=== PATIENT | male | born 1965 | race Caucasian/White ===

== ENCOUNTER → 2018-08-25 15:08 | Outpatient (CLI) | payer OTHER, SELFPAY ==
--- NOTE | 2018-08-24 14:15 | ETH_PTH ---
PATIENT: BENTON TUCKER LOC: [facility] U#:[id number] AGE/SX: 59/M ROOM: RE08/25/[address]: Dr. Forest Johnston MD : [id number] BED: DIS: SPEC #: [id number] RECD: 08/25/18 15:00 STATUS: MATTY CEDRICK #: [id number] FLORINDA: 08/24/18 14:[address]: Forest Johnston DEPT: SURGICAL PATHOLOGY RECD BY: Mike Gallego ENTERED: 08/26/18 14:31 SP TYPE: ETH TISS OTHR DR: No Primary Care Phys [facility] Tissues: A - Ethmoid sinus, NOS B - Ethmoid sinus, NOS Nasal septum, NOS Procedures: Decalcification bone/plaque Surgery Specimen Level III Surgery Specimen Level IV HEADER OPERATION: Bilateral anterior ethmoidectomy, bilateral maxillary antrostomy, septoplasty PRE-OP DIAGNOSIS: Polyp of nasal cavity, chronic sinusitis, deviated nasal septum TISSUE SUBMITTED: A - Left sinus contents, B - Right sinus contents, C - Septum MICROSCOPIC DIAGNOSIS A. Left sinus contents: Fragments of respiratory mucosal tissue with chronic inflammation and bone. B. Right sinus contents: Fragments of respiratory mucosal tissue with chronic inflammation and bone. C. Septum: Fragments of cartilage and bone, clinically deviated nasal septum. [place]:robby 08/31/18 MICROSCOPIC DESCRIPTION Slides are reviewed. GROSS DESCRIPTION A - Received in fixative is one container labeled with the patient's name and designated left sinus contents. The specimen consists of multiple fragments of hemorrhagic soft tissue mixed with fragments of bone that in aggregate measure 5 x 3 x 0.3 cm. The entire specimen is submitted in two cassettes after decalcification. B - Received in fixative is one container labeled with the patient's name and designated right sinus contents. The specimen consists of multiple fragments of hemorrhagic soft tissue mixed with possible fragments of bone that in aggregate measure 3 x 2.5 x 0.3 cm. The entire specimen is submitted in one cassette after decalcification. C - Received in fixative is one container labeled with the patient's name and designated septum. The specimen consists of multiple fragments of cartilage and bone that in aggregate measure 2 x 2 x 0.3 cm. The entire specimen is submitted in one cassette after decalcification. / [place]:robby 08/26/18 TC:5 CPT: 10709 x2, 30265, 68856 x3
== END ==
PROVIDERS: Referring Provider Otolaryngology; Visit Provider Otolaryngology
DX: J33.0 Polyp of nasal cavity (principal); J32.9 Chronic sinusitis, unspecified; J34.2 Deviated nasal septum
CPT/HCPCS: 88304; 88305; 88311